=== PATIENT | female | born 1985 | race African-American/Black ===

== ENCOUNTER 2018-06-14 08:19 | Emergency (ER) | payer OTHER, SELFPAY ==
--- NOTE | 2018-06-14 09:53 | RAD ---
THREE VIEWS LEFT FOOT: Comparison: None. History: Left foot pain. FINDINGS: Three views of the left foot shows no evidence of acute fracture or dislocation. No degenerative william ges are seen. Mild dorsal soft tissue swelling is seen. IMPRESSION: No evidence of acute osseous abnormality. POS: [facility]
== END 2018-06-14 09:03 | disposition home or self-care (01) ==
LOC: SCSER 08:19
DX: S90.32XA Contusion of left foot, initial encounter (principal); W22.8XXA Striking against or struck by other objects, initial encounter

== ENCOUNTER 2018-09-29 11:14 | Emergency (ER) | payer OTHER, SELFPAY ==
[2018-09-29 11:47] LABS: Bilirubin Negative (Negative); Blood, Urine Large (Negative); Clarity Cloudy (Clear); Glucose, Urine (Dipstick) Negative (Negative); Leukocyte Large (Negative); Nitrite Negative (Negative); Protein, Urine (Dipstick) Trace mg/dL (Neg-Trace); Specific Gravity, Urine 1.025 (1.005-1.030); Urobilinogen 0.2 mg/dL (0.2-1.0); pH, Urine 5.5 (5.0-9.0)
[2018-09-29 11:50] LABS: Bacteria/HPF 1+ HPF (None Seen); Hyaline Casts/LPF 0-3 HYALINE CAST LPF (0-3 Hyaline); Pregnancy Test - Urine (BHCG) Negative (Negative); Pregu Control Background? CLEAR/WHITE (CLR/WHITE); Pregu Control Bar Appear? YES (CONTROL BAR); Specific Gravity 1.025 (1.002-1.036)
[2018-09-29] MEDS ORDERED: cefTRIAXone\\ROCEPHIN 1 GM VIAL ONE (12:06)
[2018-09-29] MEDS ORDERED: Lidocaine 1% PF 5 ML VIAL ONE (12:06)
[2018-10-02 00:59] LABS: Chlamydia by PCR Not Detected (NotDetected); GC by PCR Not Detected (NotDetected)
== END 2018-09-29 12:30 | disposition home or self-care (01) ==
LOC: SCSER 11:14
DX: N39.0 Urinary tract infection, site not specified (principal)
CPT/HCPCS: 81003; 81015; 81025; 87086; 87480; 87491; 87510; 87591; 87660; 99283; J0696; J2001